=== PATIENT | female | born 1980 | race Caucasian/White ===

== ENCOUNTER 2021-05-31 05:01 | Emergency (ER) | payer OTHER ==
[~2021-05-31] VITALS: Ht 172.7 cm; Wt 68.0 kg
--- NOTE | 2021-05-31 05:12 | NUR ---
PT BIBSELF C/O RASH ON ELBOWS, ARMS, HANDS, TOES, AND TOP OF FEET. PT AAOX4 BREATHING EVENLY AND UNLABORED. PT STATES IT STARTED ON HER TOE AND HAS NOW SPREAD.PT STATES SHE TOOK BENADRYL AND IT HELPED THE ITCHING SLIGHTLY. UPON ASSESSMENT, THE BUMPS ARE RED AND IN CLUSTERS. PT DENIES EATING ANYTHING STRANGE OR USING DIFFERENT CREAMS OR SOAPS. PT ATTACHED TO MONITOR AND POX. PT GIVEN BLANKET AND CALL LIGHT WITHIN REACH
[2021-05-31] MEDS ORDERED: PRED20TA PO (05:49)
[2021-05-31] MEDS ORDERED: PERM60CR4 TP (05:49)
--- NOTE | 2021-05-31 05:49 | NUR ---
Patient discharged to home in stable condition. Written and verbal after care instructions given. Patient verbalizes understanding of instruction. Pt ambulatory with a steady gait. Pt was picked up by tianna
[2021-05-31] MEDS ORDERED: predniSONE 50 MG TABLET PO ONE (06:00)
[2021-05-31] MEDS ORDERED: predniSONE 20 MG TABLET ONE (06:00)
[2021-05-31] MEDS ORDERED: diphenhydrAMINE HCL 25 MG CAPSULE PO ONE (06:00)
[2021-05-31] MEDS ORDERED: diphenhydrAMINE HCL 25 MG CAPSULE ONE (06:01)
[2021-05-31 06:31] VITALS: BP 115/75
== END 2021-05-31 05:49 | disposition home or self-care (01) ==
LOC: ER 05:03
DX: R21 Rash and other nonspecific skin eruption (principal); Z79.899 Other long term (current) drug therapy
CPT/HCPCS: 99283; J7512; Q0163